=== PATIENT | female | born 1970 | race Caucasian/White ===

== ENCOUNTER → 2021-05-17 09:59 | Outpatient (BNVA) | payer OTHER, SELFPAY | PROVIDERS: Referring Provider Physician Assistant; Visit Provider Internal Medicine | DX: E04.1 Nontoxic single thyroid nodule (principal); E04.9 Nontoxic goiter, unspecified; Z77.22 Contact with and (suspected) exposure to environmental tobacco smoke (acute) (chronic) | CPT/HCPCS: 99204 ==

== ENCOUNTER 2021-05-17 11:10 | Outpatient (CLI) | payer OTHER, SELFPAY ==
[2021-05-17 12:16] LABS: Free T4 Free Thyroxine 1.26 ng/dL (0.82-1.77); Thyroid Stimulating Hormone 0.77 uIU/mL (0.27-4.20)
== END 2021-05-17 11:11 | disposition home or self-care (01) ==
PROVIDERS: PCP Physician Assistant; Visit Provider Internal Medicine
DX: E04.1 Nontoxic single thyroid nodule (principal)
CPT/HCPCS: 36415; 84439; 84443

== ENCOUNTER 2021-06-24 11:36 | Outpatient (CLI) | payer OTHER, SELFPAY ==
--- NOTE | 2021-06-24 13:30 | US_ITS ---
WS: [id number] ULTRASOUND-GUIDED RIGHT THYROID NODULE FNA HISTORY: E04.1 - Nontoxic single thyroid nodule Procedure, risks, and complications were explained to the patient. Consent has been obtained. There were no prior studies for comparison. The thyroid was imaged. The nodule within the LEFT thyroi d with a maximum diameter of 1.1 cm. There are multiple small cystic areas. No biopsy will be perform ed today. There is a larger nodule in the RIGHT thyroid which will be targeted for biopsy. The skin is cleansed with ChloraPrep and anesthetized with 1% buffered lidocaine. FNA performed with [address] technologist is present to fix slides. US/US biopsy/FNA thyroid [id number] IMPRESSION: Uncomplicated FNA of a RIGHT thyroid nodule. Final pathology results pending.
== END 2021-06-24 11:37 | disposition home or self-care (01) ==
LOC: RAD 11:38
PROVIDERS: PCP Physician Assistant; Visit Provider Internal Medicine
DX: E04.1 Nontoxic single thyroid nodule (principal)
CPT/HCPCS: 10005; 88173; 88305

== ENCOUNTER → 2022-05-23 13:25 | Outpatient (BNVA) | payer OTHER, SELFPAY | PROVIDERS: PCP Physician Assistant; Visit Provider Obstetrics & Gynecology | DX: N95.0 Postmenopausal bleeding (principal) | CPT/HCPCS: 81025; 88305 ==

== ENCOUNTER → 2024-12-25 09:40 | Outpatient (BNVA) | payer BC, SELFPAY | PROVIDERS: Visit Provider Nurse Practitioner | DX: I10 Essential (primary) hypertension (principal); E78.5 Hyperlipidemia, unspecified | CPT/HCPCS: 80053; 80061; 83036; 84443; 85025 ==

== ENCOUNTER 2024-12-30 10:09 | Outpatient (CLI) | payer BC, SELFPAY ==
--- NOTE | 2024-12-30 10:20 | MM_ITS ---
WS: [id number] BILATERAL 3D TOMOSYNTHESIS DIGITAL SCREENING MAMMOGRAPHY WITH CAD CLINICAL INFORMATION: Z12.39 - Encounter for other screening for malignant neop... HISTORY: Screening mammogram. No current complaints. COMPARISON: 2022 TECHNIQUE: Bilateral CC and MLO views. FINDINGS: Scattered fibroglandular densities bilaterally. Incidental lucent centered calcification LEFT breast. Small asymmetric density near the 12 o'clock position LEFT breast more prominent compared to previous. Recommend LEFT breast diagnostic mammography and ultrasound if persistent. Unremarkable RIGHT breast. MM/MM [facility] tomosynthesis [id number] IMPRESSION: DENSITY: There are scattered areas of fibroglandular density. BI-RADS: 0 - Incomplete: Need additional imaging evaluation. FOLLOW UP: Need Additional Imaging Recommend LEFT breast diagnostic mammography and ultrasound if persistent
== END 2024-12-30 10:10 | disposition home or self-care (01) ==
PROVIDERS: PCP Nurse Practitioner; Visit Provider Nurse Practitioner
DX: Z12.31 Encounter for screening mammogram for malignant neoplasm of breast (principal); N64.89 Other specified disorders of breast
CPT/HCPCS: 77063; 77067

== ENCOUNTER → 2025-01-22 10:04 | Outpatient (BNVA) | payer BC, SELFPAY | PROVIDERS: PCP Nurse Practitioner; Visit Provider Nurse Practitioner | DX: R94.4 Abnormal results of kidney function studies (principal) | CPT/HCPCS: 80048 ==

== ENCOUNTER 2025-01-29 09:53 | Outpatient (CLI) | payer BC, SELFPAY ==
--- NOTE | 2025-01-29 10:00 | MM_ITS ---
WS: [id number] LEFT 3D TOMOSYNTHESIS DIGITAL MAMMOGRAPHY WITH CAD CLINICAL INFORMATION: R92.8 - Other abnormal and inconclusive findings on diagn... HISTORY: Additional views TECHNIQUE: 3 views of the left breast were obtained. FINDINGS: Scattered fibroglandular densities of the left breast. Previously described small asymmetric density near the 12 o'clock position partially compresses out but is faintly persistent. Ultrasound described below. ULTRASOUND BREAST LEFT TECHNIQUE: Ultrasound left breast focused area of concern. CLINICAL INFORMATION: R92.8 - Other abnormal and inconclusive findings on diagn... FINDINGS: Ultrasound LEFT breast 11 to 1 o'clock position. Dense underlying parenchymal tissue. No suspicious cystic or solid lesions. No lesions to target for biopsy. Recommend return to annual screening mammography. [id number] IMPRESSION: DENSITY: There are scattered areas of fibroglandular density. BI-RADS: 2 - Benign. FOLLOW UP: 1 Year Follow-up Recommend return to annual screening mammography.
--- NOTE | 2025-01-29 10:30 | US_ITS ---
WS: [id number] LEFT 3D TOMOSYNTHESIS DIGITAL MAMMOGRAPHY WITH CAD CLINICAL INFORMATION: R92.8 - Other abnormal and inconclusive findings on diagn... HISTORY: Additional views TECHNIQUE: 3 views of the left breast were obtained. FINDINGS: Scattered fibroglandular densities of the left breast. Previously described small asymmetric density near the 12 o'clock position partially compresses out but is faintly persistent. Ultrasound described below. ULTRASOUND BREAST LEFT TECHNIQUE: Ultrasound left breast focused area of concern. CLINICAL INFORMATION: R92.8 - Other abnormal and inconclusive findings on diagn... FINDINGS: Ultrasound LEFT breast 11 to 1 o'clock position. Dense underlying parenchymal tissue. No suspicious cystic or solid lesions. No lesions to target for biopsy. Recommend return to annual screening mammography. US/US breast LT limited* [id number] IMPRESSION: DENSITY: There are scattered areas of fibroglandular density. BI-RADS: 2 - Benign. FOLLOW UP: 1 Year Follow-up Recommend return to annual screening mammography.
== END 2025-01-29 09:54 | disposition home or self-care (01) ==
PROVIDERS: PCP Nurse Practitioner; Visit Provider Nurse Practitioner
DX: R92.8 Other abnormal and inconclusive findings on diagnostic imaging of breast (principal)
CPT/HCPCS: 76642; 77061; G0279

== ENCOUNTER → 2025-04-27 13:20 | Outpatient (BNVA) | payer BC, SELFPAY | PROVIDERS: PCP Nurse Practitioner; Visit Provider Nurse Practitioner | DX: M79.671 Pain in right foot (principal); Q70.21 Fused toes, right foot; M25.774 Osteophyte, right foot | CPT/HCPCS: 73610; 73630 ==